=== PATIENT | female | born 1985 | race American Indian/Alaskan Native ===

== ENCOUNTER 2016-09-09 14:23 | Outpatient (CLI) | payer OTHER ==
--- NOTE | 2016-09-10 08:57 | Ultrasound Report ---
ULTRASOUND PELVIC COMPLETE: ULTRASOUND TRANSVAGINAL: HISTORY: Menometrorrhagia, pain. TECHNIQUE: Transabdominal and transvaginal ultrasound imaging with color Doppler interrogation. FINDINGS: The uterus is anteverted and measures 9 x 5 x 5 cm. No uterine fibroids are detected. The endometrial stripe is unremarkable measuring 5 mm. Normal cervix. Trace fluid in the cul-de-sac is physiologic. The right ovary is unremarkable and measures 2.0 x 1.0 x 2.6 cm. The left ovary measures 3.3 x 2.0 x 3.1 cm and contains a 1.3 cm cyst. IMPRESSION: 1.3 cm left ovarian cyst. Otherwise, unremarkable transabdominal and transvaginal pelvic ultrasounds.
== END 2016-09-09 14:24 | disposition home or self-care (01) ==
LOC: US 14:23
PROVIDERS: ATTEND Internal Medicine
DX: N83.202 Unspecified ovarian cyst, left side (principal)
CPT/HCPCS: 76830; 76856